=== PATIENT | female | born 1985 | race African-American/Black ===

== ENCOUNTER 2017-02-12 14:44 | Emergency (ER) | payer OTHER ==
[~2017-02-12] VITALS: Ht 154.9 cm; Wt 66.0 kg
[~2017-02-12 14:44] MED LIST: AMOX500T2 PO; IBUP-1509 PO
[2017-02-12] MEDS ORDERED: SODIUM CHLORIDE 0.9% 1,000 ML IV ONE (17:16)
[2017-02-12] MEDS ORDERED: LORAZEPAM 2MG/ML CPJ IV ONE (17:30)
[2017-02-12 17:56] LABS: BASOPHILS % 0.8 % (0.0-2.0); EOSINOPHILS % 0.8 % (0.0-5.0); HEMATOCRIT. 40.4 % (36.0-48.0); HEMOGLOBIN. 13.5 g/dL (12.0-16.0); MEAN CORPUSCULAR HEMOGLOBIN 27.6 pg (28.0-32.0); MEAN CORPUSCULAR VOLUME 82.4 fL (81.0-99.0); MEAN PLATELET VOLUME 8.3 fl (7.4-10.4); NEUTROPHILS % 73.4 % (40.0-76.0); PLATELET 231 x1000/uL (130-400); RED CELL DISTRIBUTION WIDTH 14.1 % (11.6-14.6)
[2017-02-12 18:01] LABS: INR 1.1; PARTIAL THROMBOPLASTIN TIME 30.3 sec (24.0-34.0); PROTHROMBIN TIME 11.5 sec
[2017-02-12 18:05] LABS: HCG SCREEN NEGATIVE
[2017-02-12 18:08] LABS: CARBON DIOXIDE 27 mEq/L (21-32); CHLORIDE 103 mEq/L (98-107); TROPONIN I < 0.02 ng/mL (0.00-0.04)
[2017-02-12] MEDS ORDERED: KETOROLAC 30MG/ML VIAL IV ONE (18:45)
[2017-02-12 19:17] VITALS: BP 146/88
== END 2017-02-12 22:11 | disposition home or self-care (01) ==
LOC: ER 19:36
DX: R00.2 Palpitations (principal); R07.89 Other chest pain; R06.00 Dyspnea, unspecified; R03.0 Elevated blood-pressure reading, without diagnosis of hypertension; R51 Headache; F45.8 Other somatoform disorders; F41.1 Generalized anxiety disorder
CPT/HCPCS: 36415; 71010; 80048; 83880; 84443; 84484; 84703; 85025; 85610; 85730; 93005; 96361; 96374; 96375; 99285; J1885; J2060; Z7610; J7030

== ENCOUNTER 2017-04-12 14:43 | Emergency (ER) | payer OTHER ==
[~2017-04-12] VITALS: Ht 154.9 cm; Wt 66.0 kg
[2017-04-12] MEDS ORDERED: ONDANSETRON HCL 4MG TABLET PO ONE (21:00)
[2017-04-12 21:22] LABS: CLARITY URINE CLEAR (CLEAR); COLOR URINE YELLOW (YELLOW); GLUCOSE URINE NEGATIVE (NEGATIVE); KETONES URINE NEGATIVE (NEGATIVE); LEUKOCYTE ESTERASE URINE NEGATIVE (NEGATIVE); NITRITE URINE NEGATIVE (NEGATIVE); OCCULT BLOOD URINE TRACE (NEGATIVE); PROTEIN URINE NEGATIVE (NEGATIVE); SPECIFIC GRAVITY URINE 1.015 (1.005-1.030)
[2017-04-12] MEDS ORDERED: CEFTRIAXONE SODIUM 250 MG/VIAL IM ONE (22:15)
[2017-04-12] MEDS ORDERED: AZITHROMYCIN 500 MG TABLET PO ONE (22:15)
[2017-04-12] MEDS ORDERED: LIDOCAINE HCL 1% 20ML VIAL (Pyxis) INJ INFIL ONE (22:15)
[2017-04-12 23:15] VITALS: BP 121/69
[2017-04-17 17:10] LABS: CHLAMYDIA TRACHOMATIS NAA Negative (Negative); NEISSERIA GONORRHOEAE NAA Negative (Negative)
== END 2017-04-12 23:32 | disposition home or self-care (01) ==
LOC: ER 19:54
DX: N76.0 Acute vaginitis (principal); N72 Inflammatory disease of cervix uteri; R10.2 Pelvic and perineal pain; R11.2 Nausea with vomiting, unspecified
CPT/HCPCS: 81001; 81025; 87210; 87491; 87591; 96372; 99284; J0696; J3490; Q0162; Z7610

== ENCOUNTER 2018-06-22 10:45 | Observation (INO) | payer OTHER ==
[~2018-06-22] VITALS: Ht 154.9 cm; Wt 76.7 kg
[~2018-06-22 10:45] MED LIST changes: -IBUP-1509 PO; +IBUP-2028 PO
[2018-06-22 12:31] LABS: CLARITY URINE CLEAR (CLEAR); COLOR URINE YELLOW (YELLOW); KETONES URINE 1+ (NEGATIVE); LEUKOCYTE ESTERASE URINE NEGATIVE (NEGATIVE); NITRITE URINE NEGATIVE (NEGATIVE); OCCULT BLOOD URINE NEGATIVE (NEGATIVE); PH URINE 7.5 (4.5-8.0); PROTEIN URINE NEGATIVE (NEGATIVE); SPECIFIC GRAVITY URINE 1.013 (1.005-1.030); UROBILINOGEN URINE 0.2 E.U./dL (0.2-1.0)
== END 2018-06-22 14:30 | disposition home or self-care (01) ==
LOC: L&D 10:45
PROVIDERS: ADMIT Specialist; ATTEND Specialist
DX: O26.833 Pregnancy related renal disease, third trimester (principal); R31.9 Hematuria, unspecified; O62.9 Abnormality of forces of labor, unspecified; Z3A.32 32 weeks gestation of pregnancy
CPT/HCPCS: 81003; 99281; G0378

== ENCOUNTER 2018-07-03 07:21 | Inpatient (IN) | payer OTHER ==
[~2018-07-03] VITALS: Ht 154.9 cm; Wt 76.7 kg
[2018-07-03] MEDS ORDERED: MAGNESIUM 4 G PREMIX 100 ML IV ONE (08:15)
[2018-07-03] MEDS ORDERED: NALOXONE HCL 0.4 MG/ML 1ML VIAL IM PRN (08:15)
[2018-07-03] MEDS ORDERED: MAGNESIUM 20 G PREMIX (L & D) 500 ML IV SCH (08:15)
[2018-07-03] MEDS: LACTATED RINGERS 1,000 ML IV SCH ×3 (08:46→23:34)
[2018-07-03] MEDS: BETAMETHASONE ACET/BETAMET 30 MG/5 ML VIAL IM SCH (08:47)
[2018-07-03 09:27] LABS: CLARITY URINE CLOUDY (CLEAR); COLOR URINE YELLOW (YELLOW); KETONES URINE TRACE (NEGATIVE); LEUKOCYTE ESTERASE URINE 3+ (NEGATIVE); NITRITE URINE NEGATIVE (NEGATIVE); OCCULT BLOOD URINE 3+ (NEGATIVE); PH URINE 7.5 (4.5-8.0); PROTEIN URINE 2+ (NEGATIVE); SPECIFIC GRAVITY URINE 1.009 (1.005-1.030); UROBILINOGEN URINE 0.2 E.U./dL (0.2-1.0)
[2018-07-03 09:41] LABS: BASOPHILS % 0.2 % (0.0-2.0); EOSINOPHILS % 0.8 % (0.0-5.0); HEMATOCRIT. 33.3 % (36.0-48.0); HEMOGLOBIN. 11.3 g/dL (12.0-16.0); LYMPHOCYTES % 18.3 % (20.0-50.0); MEAN CORPUSCULAR HEMOGLOBIN 29.8 pg (28.0-32.0); MEAN CORPUSCULAR VOLUME 87.4 fL (81.0-99.0); MEAN PLATELET VOLUME 8.2 fl (7.4-10.4); MONOCYTES % 6.6 % (2.0-8.0); NEUTROPHILS % 74.1 % (40.0-76.0); PLATELET 142 x1000/uL (130-400); RED BLOOD CELL COUNT 3.81 mill/uL (4.2-5.4)
[2018-07-03 09:55] LABS: PARTIAL THROMBOPLASTIN TIME 27.4 sec (23.4-31.0); PROTHROMBIN TIME 9.6 sec (9.1-11.1)
[2018-07-03 10:15] LABS: *AMPHETAMINES SCREEN URINE NEGATIVE (NEGATIVE); *BARBITURATES SCREEN URINE NEGATIVE (NEGATIVE)
[2018-07-03] MEDS ORDERED: ERYTHROMYCIN LACTOBIONATE 250 MG in SODIUM CHLORIDE 0.9% 100 ML IV SCH (10:15)
[2018-07-03 10:16] LABS: *BENZODIAZEPINES SCREEN URINE NEGATIVE (NEGATIVE); *COCAINE SCREEN URINE NEGATIVE (NEGATIVE)
[2018-07-03 10:17] LABS: METHADONE URINE SCREEN NEGATIVE (NEGATIVE); OPIATES URINE SCREEN NEGATIVE (NEGATIVE)
[2018-07-03 10:18] LABS: CANNABINOID URINE SCREEN NEGATIVE (NEGATIVE); PHENCYCLIDINE URINE SCREEN NEGATIVE (NEGATIVE)
[2018-07-03] MEDS: AZITHROMYCIN 500 MG in DEXT 5% WATER 250 ML IV SCH (10:34)
[2018-07-03] MEDS: AMPICILLIN 2,000 MG in SODIUM CHLORIDE 0.9% 100 ML IV SCH ×2 (13:11→19:25)
[2018-07-03 13:38] LABS: RUBELLA IGG 15.6 IU/mL (4.99-10)
[2018-07-03 13:39] LABS: HEPATITIS B SURFACE ANTIGEN NEGATIVE
[2018-07-04] MEDS: AMPICILLIN 2,000 MG in SODIUM CHLORIDE 0.9% 100 ML IV SCH ×4 (01:59→18:28)
[2018-07-04] MEDS: BETAMETHASONE ACET/BETAMET 30 MG/5 ML VIAL IM SCH (09:44)
[2018-07-04] MEDS ORDERED: ACETAMINOPHEN 650MG/20.3ML UDC PO PRN (10:15)
[2018-07-04] MEDS ORDERED: ACETAMINOPHEN 325MG TABLET PO PRN (10:30)
[2018-07-04] MEDS: AZITHROMYCIN 500 MG in DEXT 5% WATER 250 ML IV SCH (10:36)
[2018-07-04] MEDS: LACTATED RINGERS 1,000 ML IV SCH (18:27)
[2018-07-04] MEDS: BUTORPHANOL TARTRATE 2 MG/ML VIAL IV PRN (21:56)
[2018-07-05] MEDS: AMPICILLIN 2,000 MG in SODIUM CHLORIDE 0.9% 100 ML IV SCH (01:00)
[2018-07-05] MEDS ORDERED: LIDOCAINE HCL 1% 20ML VIAL (Pyxis) INJ INFIL SCH (01:30)
[2018-07-05] MEDS: BUTORPHANOL TARTRATE 2 MG/ML VIAL IV PRN (01:47)
[2018-07-05] MEDS ORDERED: NALOXONE HCL 0.4 MG/ML 1ML VIAL IV ONE (02:00)
[2018-07-05 02:21] LABS: HEMOGLOBIN 11.6 g/dL (12.0-16.0); MEAN CORPUSCULAR HEMOGLOBIN 30.1 pg (28.0-32.0); MEAN CORPUSCULAR VOLUME 88.3 fL (81.0-99.0); PLATELET 160 x1000/uL (130-400); RED BLOOD CELL COUNT 3.85 mill/uL (4.2-5.4); RED CELL DISTRIBUTION WIDTH 14.3 % (11.6-14.6)
[2018-07-05] MEDS ORDERED: BUPIVACAINE HCL/NS/PF EPIDURAL 100 ML EP ONE (02:26)
[2018-07-05] MEDS ORDERED: FENTANYL CITRATE/PF 50MCG/ML 2ML VIAL ONE (02:26)
[2018-07-05] MEDS ORDERED: BUPIVACAINE HCL/PF 0.25% (2.5MG/ML) 10ML ONE (02:26)
[2018-07-05] MEDS ORDERED: BUPIVACAINE HCL/NS/PF EPIDURAL 100 ML EP SCH (03:00)
[2018-07-05] MEDS: DEXT 5%/LR + PITOCIN 20UNITS/L 1,000 ML IV SCH ×2 (03:31→05:11)
[2018-07-05] MEDS ORDERED: DEXT 5%/LR + PITOCIN 20UNITS/L 1,000 ML IV SCH (03:44)
[2018-07-05] MEDS ORDERED: HEMORRHOIDAL SUPP PR PRN (03:45)
[2018-07-05] MEDS ORDERED: DIPHENHYDRAMINE 25MG CAPSULE PO PRN (03:45)
[2018-07-05] MEDS ORDERED: RHO(D) IMMUNE GLOBULIN 300 MCG/SYR IM PRN (03:45)
[2018-07-05] MEDS ORDERED: GLYCERIN/WITCH HAZEL LEAF MEDICATED PAD TOP PRN (03:45)
[2018-07-05] MEDS ORDERED: ACETAMINOPHEN WITH CODEINE 300/30MG TABLET PO PRN ×2 (03:45)
[2018-07-05] MEDS ORDERED: BISACODYL 10MG SUPP PR PRN (03:45)
[2018-07-05] MEDS ORDERED: BENZOCAINE/LANOLIN/ALOE VERA SPRAY TOP PRN (03:45)
[2018-07-05] MEDS ORDERED: LANOLIN OINT 0.25 GM TUBE TOP PRN (03:45)
[2018-07-05 05:30] VITALS: BP 124/77
[2018-07-05 06:00] VITALS: BP 118/78
[2018-07-05] MEDS ORDERED: TETANUS, DIPHTHERIA, PERTUSSIS VAC/PF 0.5ML (>7YR OLD) IM ONE (06:00)
[2018-07-05] MEDS ORDERED: INFLUENZA VIRUS VACCINE 0.5ML SYR IM ONE (06:00)
[2018-07-05 07:40] VITALS: BP 113/67
[2018-07-05] MEDS ORDERED: ERYTHROMYCIN ETHYLSUCCINATE 200MG/5ML 100ML PO SCH (09:00)
[2018-07-05 09:42] LABS: BASOPHILS % 0.1 % (0.0-2.0); HEMATOCRIT. 34.4 % (36.0-48.0); HEMOGLOBIN. 11.6 g/dL (12.0-16.0); LYMPHOCYTES % 7.3 % (20.0-50.0); MEAN CORPUSCULAR HEMOGLOBIN 29.6 pg (28.0-32.0); MEAN CORPUSCULAR VOLUME 87.8 fL (81.0-99.0); MEAN PLATELET VOLUME 8.5 fl (7.4-10.4); MONOCYTES % 4.1 % (2.0-8.0); NEUTROPHILS % 88.5 % (40.0-76.0); PLATELET 161 x1000/uL (130-400); RED BLOOD CELL COUNT 3.91 mill/uL (4.2-5.4); RED CELL DISTRIBUTION WIDTH 14.2 % (11.6-14.6)
[2018-07-05] MEDS: PRENATAL VIT/FE FUMARATE/FA TABLET PO SCH (09:48)
[2018-07-05] MEDS ORDERED: AMOXICILLIN 250MG CAPSULE PO SCH (10:30)
[2018-07-05 16:00] VITALS: BP 131/81
[2018-07-05 20:00] VITALS: BP 118/81
[2018-07-05] MEDS ORDERED: DOCUSATE SODIUM 100MG CAPSULE PO SCH (21:00)
[2018-07-06 05:35] VITALS: BP 114/74
[2018-07-06 09:00] VITALS: BP 116/80
[2018-07-06] MEDS: PRENATAL VIT/FE FUMARATE/FA TABLET PO SCH (09:09)
[2018-07-06] MEDS: IBUPROFEN 400MG TABLET PO PRN ×2 (09:13→17:40)
[2018-07-06] MEDS: FERROUS SULFATE 325MG TABLET PO SCH ×2 (14:07→17:39)
[2018-07-06 17:00] VITALS: BP 119/83
[2018-07-06 20:33] VITALS: BP 126/84
[2018-07-07 04:20] VITALS: BP 108/64
[2018-07-07 08:00] VITALS: BP 126/87
[2018-07-07] MEDS: FERROUS SULFATE 325MG TABLET PO SCH (09:05)
[2018-07-07] MEDS: PRENATAL VIT/FE FUMARATE/FA TABLET PO SCH (09:05)
[2018-07-07] MEDS: IBUPROFEN 400MG TABLET PO PRN (09:05)
== END 2018-07-07 12:45 | disposition home or self-care (01) | DRG 560 ==
LOC: OBSVTOIN 07:21 → L&D 07:21 → 7EST PP/OB 07-05 05:24
PROVIDERS: ADMIT Specialist; ATTEND Specialist
PROC: 10E0XZZ Delivery of Products of Conception, External Approach (ICD-10-PCS; principal; 2018-07-05 03:28)
DX: O42.913 Preterm premature rupture of membranes, unspecified as to length of time between rupture and onset of labor, third trimester (principal); O60.14X0 Preterm labor third trimester with preterm delivery third trimester, not applicable or unspecified; Z37.0 Single live birth; O99.02 Anemia complicating childbirth; Z3A.34 34 weeks gestation of pregnancy
CPT/HCPCS: 36415; 76805; 76818; 80305; 81003; 85025; 85027; 85610; 85730; 86592; 86703; 86762; 86850; 86900; 87070; 87077; 87086; 87340; 90686; 90715; G0378; J0290; J0456; J0595; J0702; J2590; J3010; J3475; J3490; J7040; J7050; J7060; J7120; Q0163; A4315

== ENCOUNTER 2021-05-31 18:00 | Emergency (ER) | payer BC, OTHER ==
[~2021-05-31] VITALS: Ht 157.5 cm; Wt 79.0 kg
[~2021-05-31 18:00] MED LIST changes: -AMOX500T2 PO; -IBUP-2028 PO; +IBUP-2029 PO
[2021-05-31] MEDS ORDERED: KETOROLAC 60MG/2ML VIAL IM NR (23:00)
[2021-05-31] MEDS ORDERED: METOCLOPRAMIDE HCL 10MG/2ML VIAL IM NR (23:00)
[2021-06-01 00:36] LABS: CLARITY URINE CLEAR (CLEAR); COLOR URINE YELLOW (YELLOW); KETONES URINE NEGATIVE (NEGATIVE); LEUKOCYTE ESTERASE URINE NEGATIVE (NEGATIVE); NITRITE URINE NEGATIVE (NEGATIVE); OCCULT BLOOD URINE TRACE (NEGATIVE); PH URINE 5.5 (4.5-8.0); PROTEIN URINE NEGATIVE (NEGATIVE); SPECIFIC GRAVITY URINE 1.023 (1.005-1.030); UROBILINOGEN URINE 0.2 E.U./dL (0.2-1.0)
[2021-06-01] MEDS ORDERED: MECL-159 PO (00:49)
[2021-06-01] MEDS ORDERED: NAPR-681 PO (00:49)
[2021-06-01 00:58] VITALS: BP 147/90
== END 2021-06-01 01:03 | disposition home or self-care (01) ==
LOC: ER 18:08
DX: R51.9 Headache, unspecified (principal); R03.0 Elevated blood-pressure reading, without diagnosis of hypertension; Z98.890 Other specified postprocedural states; Z91.018 Allergy to other foods
CPT/HCPCS: 81003; 81025; 82962; 96372; 99284; J1885; J2765

== ENCOUNTER 2021-10-17 08:56 | Emergency (ER) | payer BC, OTHER ==
[~2021-10-17] VITALS: Ht 157.5 cm; Wt 75.0 kg
[~2021-10-17 08:56] MED LIST changes: +MECL-159 PO; +NAPR-681 PO
[2021-10-17 09:15] VITALS: BP 124/90
[2021-10-17 10:04] LABS: CLARITY URINE CLOUDY (CLEAR); COLOR URINE YELLOW (YELLOW); KETONES URINE TRACE (NEGATIVE); LEUKOCYTE ESTERASE URINE 1+ (NEGATIVE); NITRITE URINE NEGATIVE (NEGATIVE); OCCULT BLOOD URINE NEGATIVE (NEGATIVE); PH URINE 5.5 (4.5-8.0); PROTEIN URINE TRACE (NEGATIVE); UROBILINOGEN URINE 0.2 E.U./dL (0.2-1.0)
[2021-10-17] MEDS ORDERED: NITR-87 MT (10:30)
[2021-10-17] MEDS ORDERED: PYR200 MT (10:30)
== END 2021-10-17 11:56 | disposition home or self-care (01) ==
LOC: ER 08:56
DX: N39.0 Urinary tract infection, site not specified (principal); R10.2 Pelvic and perineal pain
CPT/HCPCS: 81003; 81025; 99283

== ENCOUNTER 2022-02-09 13:09 | Emergency (ER) | payer BC, OTHER ==
[~2022-02-09] VITALS: Ht 157.5 cm; Wt 82.0 kg
[~2022-02-09 13:09] MED LIST changes: +NITR-87 MT; +PYR200 MT
[2022-02-09 13:39] LABS: BASOPHILS % 0.8 % (0.0-2.0); EOSINOPHILS % 4.1 % (0.0-5.0); HEMATOCRIT. 41.1 % (36.0-48.0); LYMPHOCYTES % 25.3 % (20.0-50.0); MEAN CORPUSCULAR HEMOGLOBIN 29.2 pg (28.0-32.0); MEAN CORPUSCULAR VOLUME 85.4 fL (81.0-99.0); MEAN PLATELET VOLUME 7.8 fl (7.4-10.4); MONOCYTES % 11.3 % (2.0-8.0); NEUTROPHILS % 58.5 % (40.0-76.0); PLATELET 208 x1000/uL (130-400); RED BLOOD CELL COUNT 4.81 mill/uL (4.2-5.4); RED CELL DISTRIBUTION WIDTH 12.9 % (11.6-14.6)
[2022-02-09] MEDS ORDERED: FAMOTIDINE 20MG/2ML VIAL IV ONE (13:45)
[2022-02-09] MEDS ORDERED: METHYLPREDNISOLONE SOD SUCC 125 MG/2 ML VIAL IV ONE (13:45)
[2022-02-09] MEDS ORDERED: KETOROLAC 30MG/ML VIAL IV ONE (13:45)
[2022-02-09] MEDS ORDERED: DIPHENHYDRAMINE 50MG/ML VIAL IV ONE (13:45)
[2022-02-09 13:52] LABS: CHLORIDE 104 mEq/L (98-107)
[2022-02-09 13:59] VITALS: BP 168/103
[2022-02-09 14:19] LABS: HCG SCREEN NEGATIVE
[2022-02-09] MEDS ORDERED: DIPH25CA83 MT (15:15)
[2022-02-09] MEDS ORDERED: P20 MT (15:15)
[2022-02-09] MEDS ORDERED: AMOX-424 MT (15:15)
== END 2022-02-09 15:39 | disposition home or self-care (01) ==
LOC: ER 13:09
DX: K12.2 Cellulitis and abscess of mouth (principal); Z98.890 Other specified postprocedural states; Z91.018 Allergy to other foods
CPT/HCPCS: 36415; 80053; 81025; 84703; 85025; 96374; 96375; 99284; J1200; J1885; J2930; J3490

== ENCOUNTER 2022-03-03 16:44 | Emergency (ER) | payer BC, OTHER ==
[~2022-03-03] VITALS: Ht 157.5 cm; Wt 79.0 kg
[~2022-03-03 16:44] MED LIST changes: +AMOX-424 MT; +DIPH25CA83 MT; +P20 MT
[2022-03-03 18:08] VITALS: BP 139/96
== END 2022-03-03 20:59 | disposition left against medical advice (07) ==
LOC: ER 16:44
DX: Z53.21 Procedure and treatment not carried out due to patient leaving prior to being seen by health care provider (principal)

== ENCOUNTER 2022-03-28 04:21 | Emergency (ER) | payer BC, OTHER ==
[~2022-03-28] VITALS: Ht 157.5 cm; Wt 77.0 kg
[2022-03-28] MEDS ORDERED: ONDANSETRON HCL 4MG/2ML INJ IV STA (05:36)
[2022-03-28] MEDS ORDERED: SODIUM CHLORIDE 0.9% 1,000 ML IV ONE (05:45)
[2022-03-28 05:52] LABS: BASOPHILS % 0.5 % (0.0-2.0); HEMATOCRIT. 39.9 % (36.0-48.0); HEMOGLOBIN. 13.6 g/dL (12.0-16.0); LYMPHOCYTES % 26.9 % (20.0-50.0); MEAN CORPUSCULAR HEMOGLOBIN 29.1 pg (28.0-32.0); MEAN CORPUSCULAR VOLUME 85.5 fL (81.0-99.0); MEAN PLATELET VOLUME 8.4 fl (7.4-10.4); MONOCYTES % 6.2 % (2.0-8.0); NEUTROPHILS % 64.4 % (40.0-76.0); PLATELET 230 x1000/uL (130-400); RED BLOOD CELL COUNT 4.67 mill/uL (4.2-5.4); RED CELL DISTRIBUTION WIDTH 13.2 % (11.6-14.6)
[2022-03-28 06:00] LABS: CHLORIDE 103 mEq/L (98-107)
[2022-03-28] MEDS ORDERED: KETOROLAC 15MG/ML VIAL IV ONE (07:30)
[2022-03-28] MEDS ORDERED: BUTA1CAP45 MT (07:51)
[2022-03-28 08:20] VITALS: BP 151/101
== END 2022-03-28 08:20 | disposition home or self-care (01) ==
LOC: ER 04:36
DX: R51.9 Headache, unspecified (principal); Z79.899 Other long term (current) drug therapy
CPT/HCPCS: 36415; 70450; 80053; 85025; 96374; 96375; 99284; J1885; J2405; J7030

== ENCOUNTER 2024-08-02 06:21 | Emergency (ER) | payer BC, OTHER ==
[~2024-08-02] VITALS: Ht 157.5 cm; Wt 77.1 kg
[~2024-08-02 06:21] MED LIST changes: +BUTA1CAP45 MT; -MECL-159 PO; +MECL-299 PO
[2024-08-02 06:32] VITALS: O2SAT 99
[2024-08-02 08:20] LABS: BASOPHILS % 0.7 % (0.0-2.0); EOSINOPHILS % 3.1 % (0.0-5.0); HEMATOCRIT. 38.7 % (36.0-48.0); HEMOGLOBIN. 13.3 g/dL (12.0-16.0); LYMPHOCYTES % 26.9 % (20.0-50.0); MEAN CORPUSCULAR HEMOGLOBIN 29.8 pg (28.0-32.0); MEAN CORPUSCULAR HGB CONC 34.3 g/dL (31.0-37.0); MEAN CORPUSCULAR VOLUME 86.8 fL (81.0-99.0); MEAN PLATELET VOLUME 8.1 fl (7.4-10.4); MONOCYTES % 5.9 % (2.0-8.0); NEUTROPHILS % 63.4 % (40.0-76.0); PLATELET 236 x1000/uL (130-400); RED BLOOD CELL COUNT 4.46 mill/uL (4.2-5.4); RED CELL DISTRIBUTION WIDTH 13.6 % (11.6-14.6); WHITE BLOOD COUNT 8.1 x1000/uL (4.5-11.0)
[2024-08-02 08:22] LABS: CHLORIDE 110 mEq/L (98-107); POTASSIUM 3.6 mEq/L (3.5-5.1); SODIUM 141 mEq/L (136-145)
[2024-08-02 08:23] LABS: CALCIUM 9.1 mg/dL (8.7-10.4); CARBON DIOXIDE 25 mEq/L (21-32)
[2024-08-02 08:28] LABS: CREATININE 0.8 mg/dL (0.6-1.0); GLUCOSE 128 mg/dL (70-105); UREA NITROGEN BLOOD 13 mg/dL (9-23)
[2024-08-02 08:33] LABS: HCG SCREEN NEGATIVE
[2024-08-02 08:35] LABS: INR 0.9; PROTHROMBIN TIME 10.3 sec (9.6-11.0)
[2024-08-02 08:50] LABS: TROPONIN I HIGH SENSITIVITY < 4 ng/L (3.0-34)
[2024-08-02] MEDS: LORAZEPAM 0.5MG TABLET PO ONE (09:06)
[2024-08-02 09:39] VITALS: BP 131/88; PULSE 90; RESP 18; TEMP 36.72516; O2SAT 99
== END 2024-08-02 10:10 | disposition home or self-care (01) ==
LOC: ER 06:21
DX: R07.9 Chest pain, unspecified (principal); I10 Essential (primary) hypertension; E11.9 Type 2 diabetes mellitus without complications; Z98.890 Other specified postprocedural states; Z79.899 Other long term (current) drug therapy; Z91.018 Allergy to other foods
CPT/HCPCS: 36415; 71045; 80048; 84484; 84703; 85025; 99284

== ENCOUNTER 2025-05-28 06:20 | Emergency (ER) | payer BC, OTHER ==
[~2025-05-28] VITALS: Ht 157.5 cm; Wt 77.1 kg
[2025-05-28 06:28] VITALS: O2SAT 97
[2025-05-28 06:59] LABS: CLARITY URINE TURBID (CLEAR); COLOR URINE YELLOW (YELLOW); GLUCOSE URINE NEGATIVE (NEGATIVE); KETONES URINE TRACE (NEGATIVE); LEUKOCYTE ESTERASE URINE 2+ (NEGATIVE); NITRITE URINE NEGATIVE (NEGATIVE); OCCULT BLOOD URINE 1+ (NEGATIVE); PH URINE 5.0 (4.5-8.0); PROTEIN URINE 1+ (NEGATIVE); SPECIFIC GRAVITY URINE 1.035 (1.005-1.030); UROBILINOGEN URINE 0.2 E.U./dL (0.2-1.0)
[2025-05-28 07:33] LABS: BACTERIA URINE 4+; RBC URINE 25-50 /hpf (0-2); SQUAMOUS EPITHELIAL CELL URINE 3+ /lpf (RARE/1+); WBC URINE TNTC /hpf (0-2); YEAST URINE NONE SEEN
[2025-05-28 07:40] LABS: BASOPHILS % 0.7 % (0.0-2.0); EOSINOPHILS % 2.0 % (0.0-5.0); HEMATOCRIT. 39.6 % (36.0-48.0); HEMOGLOBIN. 13.7 g/dL (12.0-16.0); LYMPHOCYTES % 30.0 % (20.0-50.0); MEAN PLATELET VOLUME 7.6 fl (7.4-10.4); MONOCYTES % 8.3 % (2.0-8.0); NEUTROPHILS % 59.0 % (40.0-76.0); PLATELET 267 x1000/uL (130-400); RED BLOOD CELL COUNT 4.73 mill/uL (4.2-5.4); RED CELL DISTRIBUTION WIDTH 14.3 % (11.6-14.6)
[2025-05-28 07:58] LABS: CREATININE 0.9 mg/dL (0.6-1.0); UREA NITROGEN BLOOD 15 mg/dL (9-23)
[2025-05-28 08:00] LABS: ASPARTATE AMINOTRANSFERASE 20 IU/L (<34); BILIRUBIN DIRECT < 0.1 mg/dL (<=3.0); BILIRUBIN TOTAL 0.4 mg/dL (0.1-1.0); PROTEIN TOTAL 7.6 g/dL (6.0-8.3)
[2025-05-28 08:01] LABS: HCG SCREEN NEGATIVE
[2025-05-28 08:04] LABS: B-HCG QUANTITATIVE < 1 mIU/mL (<6)
[2025-05-28] MEDS ORDERED: SULF1TAB48 PO (08:25)
[2025-05-28 08:43] VITALS: BP 155/92; PULSE 74; RESP 18; TEMP 37.1; O2SAT 99
== END 2025-05-28 08:44 | disposition home or self-care (01) ==
LOC: ER 06:20
DX: N39.0 Urinary tract infection, site not specified (principal); I10 Essential (primary) hypertension; E11.9 Type 2 diabetes mellitus without complications; N93.9 Abnormal uterine and vaginal bleeding, unspecified; Z98.890 Other specified postprocedural states; Z79.899 Other long term (current) drug therapy
CPT/HCPCS: 36415; 76830; 76856; 80048; 80076; 81003; 81025; 84702; 84703; 85025; 86850; 86900; 99284

== ENCOUNTER 2025-06-30 17:14 | Emergency (ER) | payer BC, OTHER ==
[~2025-06-30] VITALS: Ht 157.5 cm; Wt 76.0 kg
[~2025-06-30 17:14] MED LIST changes: +IBUP-1455 PO; -IBUP-2029 PO; +SULF1TAB48 PO
[2025-06-30 17:31] VITALS: O2SAT 98
[2025-06-30 18:04] LABS: BASOPHILS % 0.6 % (0.0-2.0); EOSINOPHILS % 3.8 % (0.0-5.0); HEMATOCRIT. 38.8 % (36.0-48.0); HEMOGLOBIN. 12.9 g/dL (12.0-16.0); LYMPHOCYTES % 16.6 % (20.0-50.0); MEAN PLATELET VOLUME 7.7 fl (7.4-10.4); MONOCYTES % 9.4 % (2.0-8.0); NEUTROPHILS % 69.6 % (40.0-76.0); PLATELET 224 x1000/uL (130-400); RED BLOOD CELL COUNT 4.52 mill/uL (4.2-5.4); RED CELL DISTRIBUTION WIDTH 13.2 % (11.6-14.6)
[2025-06-30 18:19] LABS: CREATININE 0.7 mg/dL (0.6-1.0); UREA NITROGEN BLOOD 10 mg/dL (9-23)
[2025-06-30 18:20] LABS: TROPONIN I HIGH SENSITIVITY < 4 ng/L (3.0-34)
[2025-06-30] MEDS ORDERED: AMOX-494 MT (19:03)
[2025-06-30] MEDS ORDERED: IBUP-2030 MT (19:03)
[2025-06-30 19:10] VITALS: BP 132/88; PULSE 88; RESP 14; TEMP 36.4; O2SAT 100
== END 2025-06-30 19:15 | disposition home or self-care (01) ==
LOC: ER 17:14
DX: K12.2 Cellulitis and abscess of mouth (principal); J11.1 Influenza due to unidentified influenza virus with other respiratory manifestations; I10 Essential (primary) hypertension; E11.9 Type 2 diabetes mellitus without complications; R42 Dizziness and giddiness
CPT/HCPCS: 36415; 80048; 84484; 85025; 99283; 99284